=== PATIENT | female | born 1950 | race Caucasian/White ===

== ENCOUNTER 2019-04-03 16:29 | Emergency (ER) | payer MEDICARE, BC ==
[~2019-04-03] VITALS: Ht 152.4 cm; Wt 77.1 kg
--- OUTSIDE RECORDS SUMMARY | 2019-04-03 16:31 | XMS REPORT | Summary of Care ---
Author Author ENMA BARCLAY M.D. Organization Unknown Address [facility] Phone Unavailable Care Team Providers Care Supervisory It Specialist Name Role Phone ENMA BARCLAY M.D. Unavailable Unavailable ARTEMIO SIMMONS MD Unavailable Unavailable Unavailable Unavailable Functional Status Name Dates Details Functional status health issues are not documented Status: Name Dates Details Cognitive status health issues are not documented Status: Problems Name Dates Details Knee osteoarthritis (715.36, M17.10) Status: Active Cervicalgia (723.1, M54.2) Status: Active Osteoporosis (733.00, M81.0) Status: Active [facility] current use of non-steroidal anti-inflammatories (NSAID) (V58.64, Z79.1) Status: Active Chronic foot pain, right (729.5, M79.671) Status: Active Osteoarthritis (715.90, M19.90) Status: Active Vitamin D insufficiency (268.9, E55.9) Status: Active Medications Name Dates Details TraMADol HCl - 50 MG Oral Tablet TAKE 1 TABLET BY MOUTH 3 TIMES A DAY NEEDED FOR PAIN Quantity: 90 ENMA BARCLAY M.D. * Start : 08-Apr-2017 Active PriLOSEC OTC TBEC TAKE 1 TABLET DAILY. * Refills: 0 Active Tylenol TABS TAKE 1 TO 2 TABLETS EVERY 4 HOURS NEEDED * Refills: 0 Active Aleve TABS TAKE TABLET PRN * Refills: 0 Active Stopain SOLN APPLY DIRECTED. * Refills: 0 Active Lexapro 10 MG Oral Tablet TAKE 1 TABLET DAILY. * Refills: 0 * Start : 10-Aug-2014 Active Meloxicam 7.5 MG Oral Tablet TAKE 1 TO 2 TABLETS DAILY WITH FOOD. * Quantity: 60 Refills: 2 ENMA BARCLAY M.D. * Start : 24-Aug-2016 Active Allergies and Adverse Reactions Name Dates Details Darvocet A500 (Allergy) Status: Active Darvon (Allergy) Status: Active Procedures Procedure Dates Details History of Back Surgery Completed History of Shoulder Surgery Left Completed Immunization Name Dates Details Immunizations not documented Family History Name Dates Details Family history of arthritis (V17.7, Z82.61) Status: Active Name Dates Details Family history of cardiac disorder (V17.49, Z82.49) Status: Active Name Dates Details Family history of malignant neoplasm (V16.9, Z80.9) Status: Active Social History Name Dates Details - Status: Name Dates Details Never smoker Vital Signs Date Test Result Details No Known Vitals to report Results Date Description Value Details Results not documented Plan of Care Name Dates Details Planned Observations Planned Goals not documented Instructions Name Dates Details Instructions not documented Encounters Appointment; ENMA BARCLAY M.D. Encounter Diagnosis: Problem not documented On: 25-Apr-2015 14:00 Appointment; PRICE MADRIGAL M.D. Encounter Diagnosis: Problem not documented On: 29-Apr-2015 12:30 Appointment; ENMA BARCLAY M.D. Encounter Diagnosis: Problem not documented On: 24-Aug-2016 12:00 Appointment; [facility] Encounter Diagnosis: Problem not documented On: 10-Oct-2016 9:00 Appointment; ENMA BARCLAY M.D. Encounter Diagnosis: Problem not documented On: 30-Nov-2016 12:00
--- OUTSIDE RECORDS SUMMARY | 2019-04-03 16:31 | XMS REPORT ---
Author Author [facility] Address Unknown Phone Unavailable Care Team Providers Care Crm Developer Name Role Phone Unavailable Unavailable Payers Payer Name Policy Type Policy Number Effective Date Expiration Date Problems This patient has no known problems. Allergies, Adverse Reactions, Alerts Allergy Name Allergy Type Status Severity Reaction(s) Onset Date Inactive Date Treating Clinician Comments POOJA Vasquez SV 2017-10-09 00:00:00 Medications This patient has no known medications. Results Test Description Test Time Test Comments Text Results Atomic Results Result Comments - XR FLUORO NDL 2018-11-28 16:34:00 Patient Name: ISMAEL DUMONT Unit No: [id number] EXAMS: CPT CODE: [id number] XR FLUORO NDL 20213 Fluoroscopically guided injection of the right second and fourth TMT joints and the left second intermetatarsal space with steroid and lidocaine. COMPARISON: No prior exams available. FINDINGS: After informed consent was obtained a needle was placed in the right second TMT joint with fluoroscopic guidance. Its position was confirmed by injecting Isovue 300 and obtaining a subsequent radiograph. Subsequently 0.5 mL of Kenalog 40 mg per cc and 0.5 mL of 1 percent lidocaine was injected. A needle was then placed in the right fourth TMT joint with fluoroscopic guidance. Its position was confirmed by injecting Isovue 300 and obtaining a subsequent radiograph. Subsequently 0.5 mL of Kenalog 40 mg per cc and 0.5 mL of 1 percent lidocaine was injected. A needle was then placed in the left second intermetatarsal space with fluoroscopic guidance. Its position was confirmed by injecting obtaining a subsequent radiograph. Subsequently 0.5 mL of Kenalog 40 mg per cc and 0.5 mL of 1 percent lidocaine was injected. No immediate complications were encountered. 36 seconds of fluoroscopy time was utilized. IMPRESSION: Technically successful steroid injection of the right second and fourth TMT joints and the left second intermetatarsal space at 1634 Reported and signed by: Munir Dior M.D. CC: Ginger Navarro MD; José Miguel Davenport MD Technologist: Amara Garcia RT.(R) Transcribed D/ (6355) t.ROSANNEJ [facility] [place] [facility] NAME: ISMAEL DUMONT [address] [facility] PHYS: LEONEL Denise RamonGinger Michael : 1950 AGE: 68 SEX: F [place] [address] LOC: Y.RAD PHONE #: [phone] EXAM DATE: 11/28/2018 STATUS: REG CLI FAX #: [phone] RAD #: [id number] D/C DT PAGE 1 Signed Report Patient Name: ISMAEL DUMONT Unit No: [id number] EXAMS: CPT CODE: [id number] XR FLUORO NDL 31226 <Continued> Orig Print D/T: S: 11/28/2018 (3081) [facility] [place] [facility] NAME: ISMAEL DUMONT [address] [facility] PHYS: Ginger Ruelas : 1950 AGE: 68 SEX: F [place] [address] LOC: Y.RAD PHONE #: [phone] EXAM DATE: 11/28/2018 STATUS: REG CLI FAX #: [phone] RAD #: [id number] D/C DT PAGE 2 Signed Report - XR FLUORO NDL 2018-11-28 16:34:00 Patient Name: ISMAEL DUMONT Unit No: [id number] EXAMS: CPT CODE: [id number] XR FLUORO NDL 94049 Fluoroscopically guided injection of the right second and fourth TMT joints and the left second intermetatarsal space with steroid and lidocaine. COMPARISON: No prior exams available. FINDINGS: After informed consent was obtained a needle was placed in the right second TMT joint with fluoroscopic guidance. Its position was confirmed by injecting Isovue 300 and obtaining a subsequent radiograph. Subsequently 0.5 mL of Kenalog 40 mg per cc and 0.5 mL of 1 percent lidocaine was injected. A needle was then placed in the right fourth TMT joint with fluoroscopic guidance. Its position was confirmed by injecting Isovue 300 and obtaining a subsequent radiograph. Subsequently 0.5 mL of Kenalog 40 mg per cc and 0.5 mL of 1 percent lidocaine was injected. A needle was then placed in the left second intermetatarsal space with fluoroscopic guidance. Its position was confirmed by injecting obtaining a subsequent radiograph. Subsequently 0.5 mL of Kenalog 40 mg per cc and 0.5 mL of 1 percent lidocaine was injected. No immediate complications were encountered. 36 seconds of fluoroscopy time was utilized. IMPRESSION: Technically successful steroid injection of the right second and fourth TMT joints and the left second intermetatarsal space at 2783 Reported and signed by: Munir Dior M.D. CC: Ginger Navarro MD; José Miguel Davenport MD Technologist: RT Shelia.(R) Transcribed D/ (2054) Timi [facility] [place] [facility] NAME: ISMAEL DUMONT [address] [facility] PHYS: Ginger Ruelas : 1950 AGE: 68 SEX: F [place], [place] [address] LOC: Y.RAD PHONE #: [phone] EXAM DATE: 11/28/2018 STATUS: REG CLI FAX #: [phone] RAD #: [id number] D/C DT PAGE 1 Signed Report Patient Name: ISMAEL DUMONT Unit No: [id number] EXAMS: CPT CODE: [id number] XR FLUORO NDL 23210 <Continued> Orig Print D/T: S: 11/28/2018 (3527) [facility] [place] [facility] NAME: ISMAEL DUMONT [address] [facility] PHYS: Ginger Ruelas : 1950 AGE: 68 SEX: F [place], [place] [address] LOC: Y.RAD PHONE #: [phone] EXAM DATE: 11/28/2018 STATUS: REG CLI FAX #: [phone] RAD #: [id number] D/C DT PAGE 2 Signed Report BREAST ULTRASOUND BILATERAL 2018-11-11 14:05:50 - DIAG MAMM BILATERAL MARTY CAD DIGITALBILATERAL DIGITAL DIAGNOSTIC MAMMOGRAM 3D/2D WITH CAD: 11/11/2018CLINICAL: Dense breasts. Digital breast tomosynthesis was performed in addition to routine CC and MLO views. Current mammographic images were evaluated by either a [employer] M-Vu or a zhiwo ImageChecker CAD (computer aided detection system). Comparison is made to exams dated 06/20/2017 mammogram, mammogram, and 03/03/2014 mammogram - [facility]-. The tissue of both breasts is heterogeneously dense. This may lower the sensitivity of mammography. No suspicious mass, architectural distortion, malignant type calcification, or lymph node abnormality detected. INCOMPLETE ASSESSMENT: ADDITIONAL IMAGING EVALUATION RECOMMENDEDBilateral ultrasound pending for additional evaluation. Resume annual screening mammography in one year. - BREAST ULTRASOUND BILATERALULTRASOUND OF BOTH BREASTS AND BOTH AXILLA: 11/11/2018Comparison is made to exams dated 06/20/2017 mammogram, 06/01/2016 mammogram, and 03/03/2014 mammogram - [facility]-. Real-time ultrasound of both breasts and both axilla and clinical breast exam was performed. No abnormalities were seen sonographically in either breast or either axilla. Clinical breast exam was unremarkable.IMPRESSION: NEGATIVE There is no sonographic evidence of malignancy. Patient has been informed that she has areas of dense breast tissue that could make it difficult to find a small cancer. A screening mammogram and supplemental ultrasound for dense breast tissue is recommended in 1 year.Miladys Greer M.D. dm/:11/11/2018 14:05:50 copy to: Dennise Antonio MD, ph: [phone], fax: [phone] to: José Miguel Davenport, ph: [phone], fax: [phone] Technologist: Aruna Matthews , [facility] sent: BIRADS 1-2 Combo FU Letter Mammogram BI-RADS: 0 Indeterminate Ultrasound BI-RADS: 1 Negative DIAG MAMM BILATERAL MARTY CAD DIGITAL 2018-11-11 14:05:50 - DIAG MAMM BILATERAL MARTY CAD DIGITALBILATERAL DIGITAL DIAGNOSTIC MAMMOGRAM 3D/2D WITH CAD: 11/11/2018CLINICAL: Dense breasts. Digital breast tomosynthesis was performed in addition to routine CC and MLO views. Current mammographic images were evaluated by either a [employer] M-Vu or a zhiwo ImageChecker CAD (computer aided detection system). Comparison is made to exams dated 06/20/2017 mammogram, mammogram, and 03/03/2014 [facility]. The tissue of both breasts is heterogeneously dense. This may lower the sensitivity of mammography. No suspicious mass, architectural distortion, malignant type calcification, or lymph node abnormality detected. INCOMPLETE ASSESSMENT: ADDITIONAL IMAGING EVALUATION RECOMMENDEDBilateral ultrasound pending for additional evaluation. Resume annual screening mammography in one year. - BREAST ULTRASOUND BILATERALULTRASOUND OF BOTH BREASTS AND BOTH AXILLA: 11/11/2018Comparison is made to exams dated 06/20/2017 mammogram, 06/01/2016 mammogram, and [facility]/03/[facility]. Real-time ultrasound of both breasts and both axilla and clinical breast exam was performed. No abnormalities were seen sonographically in either breast or either axilla. Clinical breast exam was unremarkable.IMPRESSION: NEGATIVE There is no sonographic evidence of malignancy. Patient has been informed that she has areas of dense breast tissue that could make it difficult to find a small cancer. A screening mammogram and supplemental ultrasound for dense breast tissue is recommended in 1 year.Miladys Greer M.D. dm/:11/11/2018 14:05:50 copy to: Dennise Antonio MD, ph: [phone], fax: [phone] to: José Miguel Davenport, ph: [phone], fax: [phone] Technologist: Aruna FORMAN, [facility]-FWletter sent: BIRADS 1-2 Combo FU Letter Mammogram BI-RADS: 0 Indeterminate Ultrasound BI-RADS: 1 Negative - XR FLUORO NDL 2018-07-17 07:21:00 Patient Name: ISMAEL DUMONT Unit No: [id number] Report Has Been Amended EXAMS: CPT CODE: [id number] XR FLUORO NDL 12050 Addendum - 07/17/2018 SIGNED 07/17/2018 ADDENDUM: [id number] RAD/FLUORNDL This study should read that the injections were in the right second and fourth TMT joints in the right naviculocuneiform joint. at 0721 Reported and signed by: Munir Dior M.D. Report Fluoroscopically guided injection of the 2nd and 4th TMT joints and naviculocuneiform joint with steroid and lidocaine. COMPARISON: Prior injection radiographs FINDINGS: After informed consent was obtained a needle was placed in the 2nd TMT joint with fluoroscopic guidance. Its position was confirmed by injecting Isovue 300 and obtaining a subsequent radiograph. Subsequently 0.5 mL of Kenalog 40 mg per cc and 0.5 mL of 1 percent lidocaine was injected. A needle was then placed in the 4th TMT joint with fluoroscopic guidance. Its position was confirmed by injecting Isovue 300 and obtaining a subsequent radiograph. Subsequently 0.5 mL of Kenalog 40 mg per cc and 0. 5 mL of 1 percent lidocaine was injected. A needle was then placed in the naviculocuneiform joint with fluoroscopic guidance. Its position was confirmed by injecting Isovue 300 and obtaining a subsequent radiograph. Subsequently 0.5 mL of Kenalog 40 mg per cc and 0.5 mL of 1 percent lidocaine was injected. No immediate complications were encountered. 44 seconds of fluoroscopy time was utilized. IMPRESSION: Technically successful steroid injection of the 2nd and 4th TMT joints and naviculocuneiform joint at 1250 Reported and signed by: Munir Dior M.D. [facility] NAME: ISMAEL DUMONT [address] [facility] PHYS: Ginger Ruelas : 1950 AGE: 67 SEX: F [place], [place] [address] LOC: Y.RAD PHONE #: [phone] EXAM DATE: 06/24/2018 STATUS: DEP CLI FAX #: [phone] RAD #: [id number] D/C DT PAGE 1 Signed Report (CONTINUED) Patient Name: ISMAEL DUMONT Unit No: [id number] Report Has Been Amended EXAMS: CPT CODE: [id number] XR FLUORO NDL 79394 <Continued> CC: Ginger Navarro MD; José Miguel Davenport MD Technologist: EDY MALHOTRA, RT(R) Transcribed D/ (4924) Timi [facility] [place] [facility] NAME: ISMAEL DUMONT [address] [facility] PHYS: KOFIBOB Howie ZelayaluigiGinger Michael : 1950 AGE: 67 SEX: F [place], [place] [address] LOC: Y.RAD PHONE #: [phone] EXAM DATE: 06/24/2018 STATUS: DEP CLI FAX #: [phone] RAD #: [id number] D/C DT PAGE 2 Signed Report Patient Name: ISMAEL DUMONT Unit No: [id number] Report Has Been Amended EXAMS: CPT CODE: [id number] XR FLUORO NDL 32719 <Continued> Orig Print D/T: S: 06/25/2018 (9319) [facility] [place] [facility] NAME: ISMAEL DUMONT [address] [facility] PHYS: LEONEL Denise NathalieGinger meyers : 1950 AGE: 67 SEX: F [place], [place] [address] LOC: Y.RAD PHONE #: [phone] EXAM DATE: 06/24/2018 STATUS: DEP CLI FAX #: [phone] RAD #: [id number] D/C DT PAGE 3 Signed Report - XR FLUORO NDL 2018-06-25 12:50:00 Patient Name: ISMAEL DUMONT Unit No: [id number] EXAMS: CPT CODE: [id number] XR FLUORO NDL 83411 Fluoroscopically guided injection of the 2nd and 4th TMT joints and naviculocuneiform joint with steroid and lidocaine. COMPARISON: Prior injection radiographs FINDINGS: After informed consent was obtained a needle was placed in the 2nd TMT joint with fluoroscopic guidance. Its position was confirmed by injecting Isovue 300 and obtaining a subsequent radiograph. Subsequently 0.5 mL of Kenalog 40 mg per cc and 0.5 mL of 1 percent lidocaine was injected. A needle was then placed in the 4th TMT joint with fluoroscopic guidance. Its position was confirmed by injecting Isovue 300 and obtaining a subsequent radiograph. Subsequently 0.5 mL of Kenalog 40 mg per cc and 0.5 mL of 1 percent lidocaine was injected. A needle was then placed in the naviculocuneiform joint with fluoroscopic guidance. Its position was confirmed by injecting Isovue 300 and obtaining a subsequent radiograph. Subsequently 0.5 mL of Kenalog 40 mg per cc and 0.5 mL of 1 percent lidocaine was injected. No immediate complications were encountered. 44 seconds of fluoroscopy time was utilized. IMPRESSION: Technically successful steroid injection of the 2nd and 4th TMT joints and naviculocuneiform joint at 1250 Reported and signed by: Munir Dior M.D. CC: Ginger Navarro MD; José Miguel Davenport MD Technologist: EDY MALHOTRA, RT(R) Transcribed D/ (5682) tMARIOJ [facility] [place] [facility] NAME: ISMAEL DUMONT [address] [facility] PHYS: Ginger Ruelas : 1950 AGE: 67 SEX: F [place], [place] [address] LOC: Y.RAD PHONE #: [phone] EXAM DATE: 06/24/2018 STATUS: DEP CLI FAX #: [phone] RAD #: [id number] D/C DT PAGE 1 Signed Report Patient Name: ISMAEL DUMONT Unit No: [id number] EXAMS: CPT CODE: [id number] XR FLUORO NDL 66298 <Continued> Orig Print D/T: S: 06/25/2018 (2144) [facility] [place] [facility] NAME: ISMAEL DUMONT [address] [facility] PHYS: Ginger Ruelas : 1950 AGE: 67 SEX: F [place], [place] [address] LOC: ChrissyRAD PHONE #: [phone] EXAM DATE: 06/24/2018 STATUS: SAUD CLI FAX #: [phone] RAD #: [id number] D/C DT PAGE 2 Signed Report - MRI LW JNT W/O CONT RT 2018-06-16 08:36:00 Patient Name: ISMAEL DUMONT Unit No: [id number] EXAMS: CPT CODE: [id number] MRI LW JNT W/[place] [address] MRI OF THE RIGHT ANKLE DIAGNOSIS: 1. There is no evidence for a tear of the tibialis anterior tendon. Edema is seen over the extensor retinaculum without a tear. 2. Posterior tibial tenosynovitis without evidence for tendon tear. 3. Partial- thickness longitudinal split tear of the peroneus brevis tendon with a small tendon sheath effusion which may represent tenosynovitis. No tendon retraction or subluxation is seen. 4. Degenerative change in the medial and middle naviculocuneiform joints and the 1st through 5th tarsometatarsal joints with subchondral cyst formation and edema as well as osteophyte formation. COMMENT: COMPARISON: No prior exams available. Scans were performed in the sagittal, axial and coronal planes utilizing T1, spin density with and without fat saturation and inversion recovery images. Bony degenerative changes are present as noted. Tendon abnormalities are as described. Effusion and/or synovitis is present involving the subtalar joints. There is no definite evidence for ligamentous sprain or tear. No abnormality of the plantar fascia is seen. at 0836 Reported and signed by: Chay Martínez MD CC: Ginger Navarro MD; José Miguel Davenport MD Technologist: RAMILA HERNANDEZ. RT(R) Transcribed D/ (0836) Armando.LESLY [facility] NAME: ISMAEL DUMONT [address] [facility] PHYS: Ginger Ruelas Michael : 1950 AGE: 67 SEX: F [place], [place] [address] LOC: Y.MRI PHONE #: [phone] EXAM DATE: 06/13/2018 STATUS: DEP CLI FAX #: [phone] RAD #: [id number] D/C DT PAGE 1 Signed Report Patient Name: ISMAEL DUMONT Unit No: [id number] EXAMS: CPT CODE: [id number] MRI LW JNT W/[place] [address] <Continued> Orig Print D/T: S: 06/16/2018 (0839) [facility] NAME: ISMAEL DUMONT [address] [facility] PHYS: Ginger Ruelas : 1950 AGE: 67 SEX: F [place], [place] [address] LOC: Y.MRI PHONE #: [phone] EXAM DATE: 06/13/2018 STATUS: SAUD CLI FAX #: [phone] RAD #: [id number] D/C DT PAGE 2 Signed Report
[2019-04-03] MEDS ORDERED: ONDANSETRON HCL INJ 2MG/ML 2ML 2 MG/ML VIAL IV STA (17:20)
[2019-04-03] MEDS ORDERED: KETOROLAC TROMETHAMINE 30 MG/ML VIAL IV STA (17:20)
[2019-04-03] MEDS ORDERED: MORPHINE SULFATE INJ 4 MG/ML INJ 1ML IV PRN (18:30)
[2019-04-03] MEDS ORDERED: KETOROLAC TROMETHAMINE 30 MG/ML VIAL IV ONE (18:30)
[2019-04-03] MEDS ORDERED: ONDANSETRON HCL INJ 2MG/ML 2ML 2 MG/ML VIAL IV ONE (18:30)
[2019-04-03] MEDS ORDERED: IOPAMIDOL 370 MG/ML 200 ML INFUS..BTL INJ ONE (18:34)
[2019-04-03] MEDS ORDERED: SODIUM CHLORIDE 0.9% 50ML 50 ML ONE (18:35)
--- NOTE | 2019-04-03 19:04 | Diagnostic Imaging Report ---
CT Abdomen And Pelvis with Intravenous Contrast INDICATION: Right-sided pain TECHNIQUE: Thin collimation axial images obtained from the diaphragm to the level of the pubic symphysis following the uneventful administration of 100 cc of low osmolar, nonionic intravenous contrast. Dose reduction techniques used: Automated exposure control, adjustment of the mAs and/or kVp according to patient size, standardized low-dose protocol, and/or iterative reconstruction technique. RADIATION DOSE: Total DLP: 688.76 mGy*cm Estimated effective dose: (DLP x 0.015 x size factor) mSv CTDIvol has been reviewed. It is below the limits set by the Radiation Protocol Committee (RPC). COMPARISON: None. ABDOMEN FINDINGS: Lung Bases: Clear. The visualized portions of the mediastinum are normal.. Liver: Steatosis. A 3-4 mm low attenuating lesion in the dome is too small to characterize. Gallbladder: Present and appears normal. No biliary ductal dilatation. Pancreas: Normal attenuation without mass or ductal dilatation. Spleen: Normal in size. No evidence of mass. Adrenal Glands: No evidence for mass. Kidneys: Right: Normal enhancement. No soft tissue mass. No hydronephrosis. Left: Normal enhancement. No soft tissue mass. No hydronephrosis. Lymph Nodes: No enlarged abdominal or periaortic lymph nodes. Aorta: Normal in diameter with scattered calcifications PELVIS FINDINGS: Bowel: Stomach: Normal. Small Bowel: Normal in caliber with normal wall thickness. Large Bowel: Diverticulosis coli. No associated inflammation. Liquid stool throughout. No dilatation. Appendix: Normal appendix. Bladder: Mildly underdistended but otherwise normal. Uterus: Absent. No adnexal mass. Bones: Degenerative changes of the spine particularly at L4-5. Schmorl's node in the superior endplate of L2. Soft tissues: Unremarkable. IMPRESSION: 1. Diverticulosis coli. No evidence for bowel obstruction or inflammation. Normal appendix. 2. Steatosis. Signed by: Dr. Patti Wray MD on 04/03/2019 7:01 PM
[2019-04-03 19:38] VITALS: BP 150/80
== END 2019-04-03 19:45 | disposition home or self-care (01) ==
LOC: FSED 16:29
DX: B02.9 Zoster without complications (principal)
CPT/HCPCS: 74177; 80053; 85025; 93005; 99284; J1885; J2270; J2405; Q9967